=== PATIENT | female | born 1960 | race Two or more races ===

== ENCOUNTER 2023-04-05 10:52 | Outpatient (CLI) | payer OTHER | END 2023-04-05 11:03 | disposition home or self-care (01) | LOC: MAMO-SONO 10:52 | PROVIDERS: ATTEND Student in an Organized Health Care Education/Training Program | DX: N60.11 Diffuse cystic mastopathy of right breast (principal); N60.12 Diffuse cystic mastopathy of left breast; Z12.31 Encounter for screening mammogram for malignant neoplasm of breast ==

== ENCOUNTER 2023-04-08 08:07 | Outpatient (CLI) | payer OTHER | END 2023-04-08 08:08 | disposition home or self-care (01) | LOC: LAB 08:07 | PROVIDERS: ATTEND Student in an Organized Health Care Education/Training Program | DX: D64.9 Anemia, unspecified (principal); E03.8 Other specified hypothyroidism; N95.1 Menopausal and female climacteric states; I10 Essential (primary) hypertension; C51.9 Malignant neoplasm of vulva, unspecified; N30.00 Acute cystitis without hematuria; E83.51 Hypocalcemia; A64 Unspecified sexually transmitted disease; N39.0 Urinary tract infection, site not specified; R97.8 Other abnormal tumor markers; R79.89 Other specified abnormal findings of blood chemistry; E55.9 Vitamin D deficiency, unspecified; A60.9 Anogenital herpesviral infection, unspecified; Z12.11 Encounter for screening for malignant neoplasm of colon ==

== ENCOUNTER 2024-04-23 07:35 | Outpatient (CLI) | payer OTHER ==
[2024-04-23 08:48] LABS: URINE APPEARANCE Clear; URINE BILIRRUBIN Negative (NEGATIVE); URINE BLOOD Negative; URINE COLOR Yellow; URINE GLUCOSE Negative (NEGATIVE); URINE KETONE Negative (NEGATIVE); URINE LEUKOCYTE Negative; URINE NITRATE Negative; URINE PROTEIN Negative (NEGATIVE)
[2024-04-23 08:51] LABS: URINE BACTERIA 15.1 uL (0.0-1933); URINE RBC 7.7 uL (0.0-20.8); URINE WBC 2.1 uL (0.0-23.2)
[2024-04-23 08:54] LABS: HEMATOCRIT 40.8 % (36.0-45.00); HEMOGLOBIN 13.9 g/dL (12.0-15.00); MEAN CELL VOLUME 91.5 fL (80.00-100.00); MEAN CORPUSCULAR HEMOGLOBIN 31.2 pg (27.00-32.0); MEAN CORPUSCULAR HGB CONC 34.1 g/dl (32.0-36.0); PLATELET COUNT 210 K/uL (150-450); RED BLOOD COUNT 4.46 M/uL (4.00-6.00); RED CELL DISTRIBUTION WIDTH 13.1 % (11.5-14.5)
[2024-04-23 09:30] LABS: URINE CAST 0.15 uL (0.0-1.40)
[2024-04-23 10:03] LABS: BILIRUBIN TOTAL 0.37 mg/dL (0.3-1.2); CALCIUM 8.8 mg/dL (8.5-10.1); CHOL HDL RATIO 5.5 (0-5.0); CREATININE SERUM 0.65 mg/dL (0.55-1.02); GFR 92.36; GLOBULINA 3.5 G/DL (2.4-3.5); POTASSIUM 4.23 mEq/L (3.5-5.1); T4 FREE 0.9 NG/ML (0.76-1.46); TOTAL PROTEIN 7.5 gm/dL (6.4-8.2); TSH 2.56 uIU/mL (0.358-3.74)
[2024-04-23 11:19] LABS: VITAMIN D3 25 HYDROXY 29.07 ng/ml (30-120)
== END 2024-04-23 07:36 | disposition home or self-care (01) ==
LOC: LAB 07:35
PROVIDERS: ATTEND General Practice
DX: E78.5 Hyperlipidemia, unspecified (principal)

== ENCOUNTER 2024-04-27 08:17 | Outpatient (CLI) | payer OTHER ==
[2024-04-27 09:06] LABS: ob NEGATIVE (NEGATIVE)
== END 2024-04-27 08:26 | disposition home or self-care (01) ==
LOC: LAB 08:17
PROVIDERS: ATTEND General Practice
DX: E78.5 Hyperlipidemia, unspecified (principal)

== ENCOUNTER 2024-12-05 11:16 | Outpatient (CLI) | payer OTHER | END 2024-12-05 11:20 | disposition home or self-care (01) | LOC: MAMO-SONO 11:16 | PROVIDERS: ATTEND Student in an Organized Health Care Education/Training Program | DX: N60.11 Diffuse cystic mastopathy of right breast (principal); N60.12 Diffuse cystic mastopathy of left breast; Z12.31 Encounter for screening mammogram for malignant neoplasm of breast ==

== ENCOUNTER 2024-12-07 07:28 | Outpatient (CLI) | payer OTHER ==
[2024-12-07 08:43] LABS: HEMOGLOBIN 13.8 g/dL (12.0-15.00); MEAN CELL VOLUME 91.9 fL (80.00-100.00); MEAN CORPUSCULAR HGB CONC 33.7 g/dl (32.0-36.0); PLATELET COUNT 223 K/uL (150-450); RED BLOOD COUNT 4.46 M/uL (4.00-6.00); RED CELL DISTRIBUTION WIDTH 13.5 % (11.5-14.5)
[2024-12-07 08:44] LABS: PH,URINE 6.5 (5.0-8.0); URINE APPEARANCE Clear; URINE BILIRRUBIN Negative (NEGATIVE); URINE BLOOD Negative; URINE COLOR Yellow; URINE GLUCOSE Negative (NEGATIVE); URINE KETONE Negative (NEGATIVE); URINE LEUKOCYTE Negative; URINE NITRATE Negative; URINE PROTEIN Negative (NEGATIVE); URINE UROBILINOGEN 0.2 E.U./dl
[2024-12-07 08:48] LABS: URINE BACTERIA 19.5 uL (0.0-1933); URINE EPITHELIAL CELLS 11.2 uL (0.0-38.8); URINE RBC 3.5 uL (0.0-20.8)
[2024-12-07 08:51] LABS: URINE CAST 0.29 uL (0.0-1.40); URINE WBC 0.7 uL (0.0-23.2)
[2024-12-07 09:06] LABS: ob NEGATIVE (NEGATIVE)
[2024-12-07 09:25] LABS: ALBUMIN 3.9 gm/dL (3.4-5.0); BILIRUBIN TOTAL 0.42 mg/dL (0.3-1.2); CALCIUM 9.4 mg/dL (8.5-10.1); CHOL HDL RATIO 5.4 (0-5.0); CREATININE SERUM 0.75 mg/dL (0.55-1.02); GFR 78.05; GLOBULINA 3.5 G/DL (2.4-3.5); POTASSIUM 4.68 mEq/L (3.5-5.1); TOTAL PROTEIN 7.4 gm/dL (6.4-8.2)
[2024-12-07 11:25] LABS: TSH 2.93 uIU/mL (0.358-3.74)
== END 2024-12-07 07:33 | disposition home or self-care (01) ==
LOC: LAB 07:28
PROVIDERS: ATTEND Student in an Organized Health Care Education/Training Program
DX: Z12.11 Encounter for screening for malignant neoplasm of colon (principal); D64.9 Anemia, unspecified; E03.8 Other specified hypothyroidism; N95.1 Menopausal and female climacteric states; I10 Essential (primary) hypertension; C51.9 Malignant neoplasm of vulva, unspecified; N30.00 Acute cystitis without hematuria; E83.51 Hypocalcemia; A64 Unspecified sexually transmitted disease; N39.0 Urinary tract infection, site not specified; R97.8 Other abnormal tumor markers; R79.89 Other specified abnormal findings of blood chemistry; E55.9 Vitamin D deficiency, unspecified; A60.9 Anogenital herpesviral infection, unspecified